=== PATIENT | female | born 1995 | race African-American/Black ===

== ENCOUNTER 2024-03-14 14:28 | Emergency (ER) | payer OTHER ==
[~2024-03-14] VITALS: Ht 172.7 cm; Wt 95.0 kg
[2024-03-14 14:33] VITALS: BP 141/75; O2SAT 100
[2024-03-14 14:37] VITALS: PULSE 79; RESP 18; O2SAT 100
== END 2024-03-14 16:00 | disposition home or self-care (01) ==
LOC: ER 14:52
DX: Z04.1 Encounter for examination and observation following transport accident (principal); Z88.2 Allergy status to sulfonamides
CPT/HCPCS: 99281